=== PATIENT | female | born 1955 | race Caucasian/White ===

== ENCOUNTER 2022-07-29 20:22 | Emergency (ER) | payer OTHER, MEDICARE, SELFPAY ==
[2022-07-29 20:29] VITALS: BP 166/72; PULSE 91; RESP 18; TEMP 36.5; O2SAT 97; BMI 27.5
--- NOTE | 2022-07-29 20:42 | CRLHL7_ITS ---
For Patients: As a result of the Cures Act, medical imaging exams and procedure reports are released immediately into your electronic medical record. You may view this report before your referring provider. If you have questions, please contact your health care provider. INDICATION: Cough. TECHNIQUE: Chest 2 views. COMPARISON: None. FINDINGS: Cardiovascular and mediastinum: Cardiomediastinal silhouette is within normal limits Lungs and pleural spaces: Lungs are clear. No sign of pleural effusion. No pneumothorax. Bones and soft tissues: No significant findings. IMPRESSION: No acute or significant findings. Dictated by Toby Lee MD @ 07/29/2022 9:14:05 PM (Electronically Signed)
--- NOTE | 2022-07-29 20:44 | ED_ITS ---
HPI - SOB/Dyspnea General Date Seen: 07/29/22 Chief Complaint: Cough Stated Complaint: Cough, Vomiting, Pain across the back Time Seen by Provider: 07/29/22 20:24 Source: patient and family Mode of arrival: ambulatory Limitations: no limitations History of Present Illness HPI Narrative: This very nice 59-year-old female presents here with her significant other for evaluation of cough of wishes for 3 weeks it has gotten a little worse in the last week or so she will have coughing jags will show feel like and has retched a couple times with these. She has never coughed up any blood any green sputum, she has it worse in the morning when she wakes up, whenever she is talking. She does not really have any shortness of breath with this leg swelling, there has been no other significant nausea vomiting she is eating and drinking normally and no fevers or chills associated with this. She has tried some [id number] remedies but really nothing major. She has tested negative for COVID a couple times over the past 3 days. Treatment prior to arrival: none Related Data Home oxygen amount: none Home Medications Medication Instructions Recorded Confirmed alendronate 70 mg tablet 70 mg PO QWEEK 03/01/22 07/29/22 citalopram 40 mg tablet 40 mg PO QDAY 03/01/22 07/29/22 gabapentin 300 mg capsule 300 mg PO TID 03/01/22 07/29/22 lisinopril 10 1 tab PO QDAY 03/01/22 07/29/22 mg-hydrochlorothiazide 12.5 mg tablet omeprazole 40 mg capsule,delayed 40 mg PO QDAY 03/01/22 07/29/22 release simvastatin 40 mg tablet 40 mg PO QDAY 03/01/22 07/29/22 Previous Rx's Medication Instructions Recorded ergocalciferol (vitamin D2) 1,250 50,000 unit PO QWEEK #12 caps 04/18/22 mcg (50,000 unit) capsule levothyroxine 75 mcg capsule 75 mcg PO QDAY #90 caps 04/18/22 Allergies Allergy/AdvReac Type Severity Reaction Status Date / Time Sulfa (Sulfonamide Allergy Mild Rash Verified 03/01/22 10:01 Antibiotics) Review of Systems Status of ROS: Reports: 10 or more systems reviewed and unremarkable except as noted in History and below PFSH PFSH Medical History (Updated 07/29/22 @ 21:43 by Olaf Jane RN) Anxiety Chronic low back pain COVID-19 virus infection Depression GI bleed Hypercholesteremia Hypothyroidism Malignant neoplasm of overlapping sites of rectum, anus and anal canal MRSA (methicillin resistant Staphylococcus aureus) Primary hypertension Vitamin D deficiency Surgical History (Updated 07/29/22 @ 21:43 by Olaf Jane RN) History of section History of colonoscopy History of tonsillectomy Social History Smoking Status: Never smoker Do you use any of these nicotine containing products: None Second hand tobacco smoke exposure: No How often do you have a drink containing alcohol: never How often do you have six or more drinks on one occasion: Never AUDIT-C Alcohol total score: 0 Non-prescribed substance use: denies use Exam Narrative: Exam Narrative: Patient is peaking normally, problem with slurring words, oriented x3. Head eyes ears nose and throat exam show equal pupils, no scleral icterus, extraocular muscles are normal, no facial droop, speech is normal, trachea normal and midline. Thyroid normal midline palpable not enlarged. Chest shows symmetrical rise bilaterally, normal auscultation with no wheezes, no increased work of breathing, no overt bruising or lesions seen, no tenderness is noted on auscultation. Heart sounds normal with no S3-S4 no murmurs clicks or gallops. Abdomen shows no obvious masses or hepatosplenomegaly, no organomegaly, bowel sounds are normal in all quadrants. No tenderness is noted also in all quadrants. Upper and lower extremities show normal power, normal range of motion, pulses are normal, sensations normal, fine motor movements are normal, pelvis is stable to rocking. Cervical spine shows normal range of motion, and palpably not tender. Thoracic spine shows normal range of motion, and palpably not tender, lumbar spine shows no tenderness to palpation percussion and is otherwise normal range of motion. Skin shows no rashes, petechiae or eccymosis. Const: Vital Signs, click to edit/add: Vital Signs - 24 hr 07/29/22 20:29 07/29/22 21:43 07/29/22 20:45 Temperature 97.7 F 97.7 F Pulse Rate [Right Pulse Oximeter] 91 84 Respiratory Rate 18 18 Blood Pressure [Ri ght Upper Arm] 166/72 H 154/70 H Pulse Oximetry 97 97 97 Oxygen Delivery Me thod Room Air Room Air Documenting provider has reviewed patient's vital signs: yes Course Course Hospital Course: I discussed with the patient and her , we will do a chest x-ray will do a triple swab but I suspect that she has some postnasal drip causing her to cough, as I have a similar current presentation. Flu swab came back positive influenza a, given the length of time she sick, she is not a candidate for Tamiflu, we talked about symptomatic management, however cough, which can be improved by using inhaler even though she is not wheezy, she would like to try this. Other symptomatic treatment is discussed. Vital Signs Vital signs: Initial Vital Signs Temperature 97.7 F 07/29/22 20:29 Temperature Source Temporal Artery Scan 07/29/22 20:29 Pulse Rate 91 07/29/22 20:29 Respiratory Rate 18 07/29/22 20:29 Blood Pressure 166/72 H 07/29/22 20:29 Blood Pressure Mean 103 07/29/22 20:29 Blood Pressure Position Sitting 07/29/22 20:29 Pulse Oximetry 97 07/29/22 20:29 Oxygen Delivery Method 07/29/22 20:29 Vital Signs Temperature 97.7 F 07/29/22 20:29 Pulse Rate 91 07/29/22 20:29 Respiratory Rate 18 07/29/22 20:29 Blood Pressure 166/72 H 07/29/22 20:29 Pulse Oximetry 97 07/29/22 20:29 Oxygen Delivery Method 07/29/22 20:29 Temperature 97.7 F 07/29/22 21:43 Pulse Rate 84 07/29/22 21:43 Respiratory Rate 18 07/29/22 21:43 Blood Pressure 154/70 H 07/29/22 21:43 Pulse Oximetry 97 07/29/22 21:43 Oxygen Delivery Method 07/29/22 21:43 MDM - SOB/Dyspnea MDM Narrative Medical decision making narrative: Differential diagnosis include a viral upper respiratory illness, histoplasmosis, tuberculosis, pneumonia, COPD exacerbation, emphysema, strep throat illness, bronchitis, asthma, reactive airway disease, chronic cough, medication side effects, allergic rhinitis with postnasal drip, foreign body aspiration, aspiration pneumonia, bronchiolitis, and gastroesophageal reflux disease as well as multiple other considerations. Medical Records Attestation: I reviewed the patient's medical records. Lab Data Attestation: I reviewed the patient's lab results. Labs: Lab Results 07/29/22 Range/Units 20:36 SARS-CoV-2 (PCR) Negative SARS-CoV-2 (Negative) Influenza Type A (PCR) POSITIVE PCR FLU A A (Negative) Influenza Type B (PCR) Negative PCR FLU B (Negative) RSV (PCR) Negative PCR RSV (Negative) Imaging Data Chest x-ray: Attestation: I have reviewed the pertinent imaging results. My impression: Negative chest Radiologist's impression: Patient: HIMANSHU BLUM Facility:?[facility] Patient ID:?[id number] Site Patient ID:?[id number]. Site :?[id number] Study:?XRay Chest 2 views-07/29/2022 9:03:53 PM Ordering Physician:Jace Galloway Final Report: INDICATION: Cough. TECHNIQUE: Chest 2 views. COMPARISON: None. FINDINGS: Cardiovascular and mediastinum: Cardiomediastinal silhouette is within normal limits Lungs and pleural spaces: Lungs are clear. No sign of pleural effusion. No pneumothorax. Bones and soft tissues: No significant findings. IMPRESSION: No acute or significant findings. Dictated by Toby Lee MD @ 07/29/2022 9:14:05 PM (Electronic Signature) Discharge Plan Discharge Clinical Impression: Influenza A Patient Disposition: Home w/ Parent or Adult Condition: Stable Instructions: Influenza (ED) Additional Instructions: Home rest you can try the NyQuil at night I did not find this work that well, I would stay away from pure decongestants given your history of blood pressure, Tylenol, and ibuprofen would be helpful at night also. Let us try the inhaler, see if that helps, 2 puffs from the inhaler every 4-6 hours, the only real side effect of this is makes you feel little jittery like having caffeine. Prescriptions: No Action citalopram 40 mg tablet 40 mg PO QDAY lisinopril-hydrochlorothiazide 10-12.5 mg tablet 1 tab PO QDAY simvastatin 40 mg tablet 40 mg PO QDAY alendronate 70 mg tablet 70 mg PO QWEEK gabapentin 300 mg capsule 300 mg PO TID omeprazole 40 mg capsule,delayed release(DR/EC) 40 mg PO QDAY ergocalciferol (vitamin D2) 1,250 mcg (50,000 unit) capsule 50,000 unit PO QWEEK Qty: 12 1RF levothyroxine 75 mcg capsule 75 mcg PO QDAY Qty: 90 1RF Stand Alone Forms: [facility] Info Instructions
[2022-07-29 20:45] VITALS: O2SAT 97
[2022-07-29 21:28] LABS: PCR FLU A POSITIVE PCR FLU A (Negative); PCR FLU B Negative PCR FLU B (Negative); PCR RSV Negative PCR RSV (Negative)
[2022-07-29 21:33] LABS: SARS PCR* Negative SARS-CoV-2 (Negative)
[2022-07-29 21:43] VITALS: BP 154/70; PULSE 84; RESP 18; TEMP 36.5; O2SAT 97
[2022-07-29 21:56] VITALS: BP 154/70; PULSE 84; RESP 18; TEMP 36.5
== END 2022-07-29 21:56 | disposition home or self-care (01) ==
PROVIDERS: Emergency Provider Family Medicine; PCP Family Medicine
DX: J09.X2 Influenza due to identified novel influenza A virus with other respiratory manifestations (principal)
CPT/HCPCS: 71046; 87502; 87634; 87635; 94761; 99284

== ENCOUNTER 2022-09-28 13:40 | Outpatient (CLI) | payer OTHER, MEDICARE, SELFPAY | END 2022-09-28 13:41 | disposition home or self-care (01) | LOC: NFLDREF 13:40 | PROVIDERS: PCP Family Medicine; Visit Provider Family Medicine | DX: E03.9 Hypothyroidism, unspecified (principal) | CPT/HCPCS: 84443 ==

== ENCOUNTER 2023-02-20 16:51 | Emergency (ER) | payer OTHER, MEDICARE, SELFPAY ==
[2023-02-20 17:02] VITALS: BP 147/87; PULSE 90; RESP 18; TEMP 36.2; O2SAT 95; BMI 27.5
[2023-02-20 17:25] LABS: Appearance Urine Clear (Clear); Bilirubin Urine Negative (Negative); Blood Urine 1+ (Negative); Color Urine Yellow (Yellow); Glucose Urine Negative (Negative); Ketones Urine Negative (Negative); Leukocyte Esterase Urine Trace (Negative); Nitrite Urine Negative (Negative); Protein Urine Trace (Negative); Urobilinogen Urine 0.2 (0.2-1.0); pH Urine 5.5 (5.0-8.5)
[2023-02-20 17:34] LABS: Bacteria Urine Few; Mucus Urine Few; Squamous Epithelial Cell Urine Moderate (None-Few)
--- NOTE | 2023-02-20 17:35 | ED.GENADULT ---
HPI - General Adult General Chief complaint: Unspecified Complaint, Adult Stated complaint: UTI Time Seen by Provider: 02/20/23 16:55 Source: patient Mode of arrival: ambulatory Limitations: no limitations History of Present Illness HPI narrative: 67-year-old female coming in today concerned will urinary incontinence going on for several months. She is concerned she may have a UTI. She states when she has an urge to urinate she can hold it. She also states that when she does things like stand up or cough for instance, she will dribble then as well. She denies increased urinary frequency. She does state that her urine has a foul smell to it that is going on for several months as well. She denies fevers or chills. No flank pain. No changes in her weight. No nausea or vomiting. She does have a history of colorectal cancer which she had chemo and radiation for. Related Data Home Medications Medication Instructions Recorded Confirmed lisinopril 10 1 tab PO QDAY 03/01/22 07/29/22 mg-hydrochlorothiazide 12.5 mg tablet omeprazole 40 mg capsule,delayed 40 mg PO QDAY 03/01/22 07/29/22 release Previous Rx's Medication Instructions Recorded ergocalciferol (vitamin D2) 1,250 50,000 unit PO QWEEK #12 caps 04/18/22 mcg (50,000 unit) capsule alendronate 70 mg tablet 70 mg PO QWEEK #12 tabs 01/30/23 citalopram 40 mg tablet 40 mg PO QDAY #30 tabs 02/03/23 levothyroxine 88 mcg capsule 88 mcg PO QDAY #30 caps 02/03/23 gabapentin 300 mg capsule 300 mg PO TID #270 caps 02/07/23 simvastatin 40 mg tablet 40 mg PO QDAY #90 tabs 02/07/23 Allergies Allergy/AdvReac Type Severity Reaction Status Date / Time Sulfa (Sulfonamide Allergy Mild Rash Verified 02/20/23 17:06 Antibiotics) Review of Systems Status of ROS: Reports: 10 or more systems reviewed and unremarkable except as noted in History and below [facility] Medical History Encounter for screening ?Z13.9 - Encounter for screening, unspecified (ICD-10) Hyperlipidemia ?E78.5 - Hyperlipidemia, unspecified (ICD-10) Major depression, recurrent ?F33.9 - Major depressive disorder, recurrent, unspecified (ICD-10) GAYLA (generalized anxiety disorder) ?F41.1 - Generalized anxiety disorder (ICD-10) Primary hypertension ?I10 - Essential (primary) hypertension (ICD-10) Chronic low back pain ?M54.50 - Low back pain, unspecified (ICD-10) ?G89.29 - Other chronic pain (ICD-10) Vitamin D deficiency ?E55.9 - Vitamin D deficiency, unspecified (ICD-10) GI bleed ?K92.2 - Gastrointestinal hemorrhage, unspecified (ICD-10) MRSA (methicillin resistant Staphylococcus aureus) ?A49.02 - Methicillin resistant Staphylococcus aureus infection, unspecified site (ICD-10) Malignant neoplasm of overlapping sites of rectum, anus and anal canal ?C21.8 - Malignant neoplasm of overlapping sites of rectum, anus and anal canal (ICD-10) Hypothyroidism ?E03.9 - Hypothyroidism, unspecified (ICD-10) COVID-19 virus infection ?U07.1 - COVID-19 (ICD-10) Surgical History History of colonoscopy ?Z98.890 - Other specified postprocedural states (ICD-10) History of tonsillectomy ?Z90.89 - Acquired absence of other organs (ICD-10) History of section ?Z98.891 - History of uterine scar from previous surgery (ICD-10) Family History Grandfather Diabetes Hypercholesteremia High blood pressure Grandmother Diabetes Hypercholesteremia High blood pressure Osteoporosis Father Hx of emphysema Mother Hypercholesteremia Lung cancer Maternal Grandmother Uterine cancer Social History Narrative: - Miguel A Non-smoker Wears glasses Smoking Status: Never smoker Do you use any of these nicotine containing products: None Second hand tobacco smoke exposure: No How often do you have a drink containing alcohol: never How often do you have six or more drinks on one occasion: Never AUDIT-C Alcohol total score: 0 Non-prescribed substance use: denies use Exam Narrative: Exam Narrative: Well-nourished well-developed patient in no acute distress. Alert and oriented. Answers questions appropriately. Mood and affect are appropriate. Thoughts are goal oriented and rational. No tangential or magical thinking noted. Patient speaks in full sentences without needing to catch her breath. HEENT: Normocephalic atraumatic. Pupils are equally round reactive to light. Extraocular muscles are intact. Conjunctivae are moist without any icterus noted. Moist mucous membranes. Extremities: Bilateral lower extremities are without edema. Skin: Well perfused without any obvious rashes. Const: Vital Signs, click to edit/add: Vital Signs - 24 hr 02/20/23 17:02 Temperature 97.1 F L Pulse Rate [Pulse Oximeter] 90 Respiratory Rate 18 Blood Pressure [Ri t Upper Arm] 147/87 H Pulse Oximetry 95 Oxygen Delivery Me thod Room Air Course Course Hospital Course: UA was done which was not overwhelming for signs of infection. Vital Signs Vital signs: Initial Vital Signs Temperature 97.1 F L 02/20/23 17:02 Temperature Source Temporal Artery Scan 02/20/23 17:02 Pulse Rate 90 02/20/23 17:02 Pulse Rhythm Regular 02/20/23 17:02 Pulse Strength 0+ Absent 02/20/23 17:02 Respiratory Rate 18 02/20/23 17:02 Blood Pressure 147/87 H 02/20/23 17:02 Blood Pressure Mean 107 H 02/20/23 17:02 Blood Pressure Position Sitting 02/20/23 17:02 Pulse Oximetry 95 02/20/23 17:02 Oxygen Delivery Method Room Air 02/20/23 17:02 Vital Signs Temperature 97.1 F L 02/20/23 17:02 Pulse Rate 90 02/20/23 17:02 Respiratory Rate 18 02/20/23 17:02 Blood Pressure 147/87 H 02/20/23 17:02 Pulse Oximetry 95 02/20/23 17:02 Oxygen Delivery Method Room Air 02/20/23 17:02 Temperature 97.1 F L 02/20/23 17:02 Pulse Rate 90 02/20/23 17:02 Respiratory Rate 18 02/20/23 17:02 Blood Pressure 147/87 H 02/20/23 17:02 Pulse Oximetry 95 02/20/23 17:02 Oxygen Delivery Method Room Air 02/20/23 17:02 Medical Decision Making MDM Narrative Medical decision making narrative: 59-year-old female with urinary incontinence. Recommend she follow up with primary care provider for for next steps in management. Urine culture pending at this time we will treat antibiotics should that come back positive. Patient was in agreement and had no other questions. Lab Data Lab results reviewed: Yes I reviewed the patient's lab results Labs: Lab Results 02/20/23 Range/Units 17:20 Urine Color Yellow (Yellow) Urine Appearance Clear (Clear) Urine pH 5.5 (5.0-8.5) Ur Specific [place] 1.020 (1.000-1.030) Urine Protein Trace A (Negative) Urine Glucose (UA) Negative (Negative) Urine Ketones Negative (Negative) Urine Blood 1+ A (Negative) Urine Nitrite Negative (Negative) Urine Bilirubin Negative (Negative) Urine Urobilinogen 0.2 (0.2-1.0) Ur Leukocyte Esterase Trace A (Negative) Urine RBC 2-5 A (0-2) Urine WBC 2-5 (0-5) Ur Squamous Epith Cells Moderate A (None-Few) Urine Bacteria Few A (None) Urine Mucus Few A (None) Discharge Plan Discharge Clinical Impression: Urinary incontinence Patient Disposition: Home, Self-Care Condition: Stable Additional Instructions: Follow-up with your primary care provider for next steps in management. This can include appointment with OBGYN or physical therapist. Prescriptions: No Action lisinopril-hydrochlorothiazide 10-12.5 mg tablet 1 tab PO QDAY omeprazole 40 mg capsule,delayed release(DR/EC) 40 mg PO QDAY ergocalciferol (vitamin D2) 1,250 mcg (50,000 unit) capsule 50,000 unit PO QWEEK Qty: 12 1RF alendronate 70 mg tablet 70 mg PO QWEEK Qty: 12 0RF citalopram 40 mg tablet 40 mg PO QDAY Qty: 30 0RF levothyroxine 88 mcg capsule 88 mcg PO QDAY Qty: 30 0RF simvastatin 40 mg tablet 40 mg PO QDAY Qty: 90 0RF gabapentin 300 mg capsule 300 mg PO TID Qty: 270 0RF Rx Instructions: Patient needs an appointment before next refill. Follow Up/Referrals: Alpesh Lee MD [Primary Care Provider] - Stand Alone Forms: [facility] Info Instructions
== END 2023-02-20 18:39 | disposition home or self-care (01) ==
PROVIDERS: Emergency Provider Family Medicine; PCP Family Medicine
DX: R32 Unspecified urinary incontinence (principal)
CPT/HCPCS: 81001; 87086; 99283

== ENCOUNTER 2023-02-24 13:03 | Outpatient (CLI) | payer OTHER, MEDICARE, SELFPAY | END 2023-02-24 13:04 | disposition home or self-care (01) | PROVIDERS: PCP Family Medicine; Visit Provider Family Medicine | DX: E78.00 Pure hypercholesterolemia, unspecified (principal); E55.9 Vitamin D deficiency, unspecified; E78.5 Hyperlipidemia, unspecified; E03.9 Hypothyroidism, unspecified; I10 Essential (primary) hypertension | CPT/HCPCS: 80048; 80061; 82306; 84439; 84443 ==

== ENCOUNTER 2023-09-19 13:34 | Outpatient (CLI) | payer OTHER, MEDICARE, SELFPAY ==
--- NOTE | 2023-09-19 13:40 | CRLHL7_ITS ---
For Patients: As a result of the Century Cures Act, medical imaging exams and procedure reports are released immediately into your electronic medical record. You may view this report before your referring provider. If you have questions, please contact your health care provider. BILATERAL SCREENING MAMMOGRAM WITH COMPUTER-AIDED DETECTION AND TOMOSYNTHESIS TECHNIQUE: CC and MLO views were obtained. These mammographic images have been obtained using full-field digital technique. These mammographic images were interpreted with the benefit of computer-aided detection. Breast Tomosynthesis was used in this interpretation. COMPARISON FILM: 12/14/21, 04/01/20, 01/16/19. FINDINGS: The breasts are heterogeneously dense, which may obscure small masses. IMPRESSION: There is no radiographic evidence for malignancy. ASSESSMENT: BI-RADS Category 1: Negative RECOMMENDATION: Routine screening mammogram in 1 year. A lay language report of this examination will be provided to the patient. Alpesh Freitas M.D. Diagnostic Radiologist [email or web address] SP/Dictated by: Alpesh Freitas MD @ 09/20/2023 1:16:00 PM (Electronically Signed)
== END 2023-09-19 13:35 | disposition home or self-care (01) ==
LOC: MAMMO 13:35
PROVIDERS: PCP Family Medicine; Visit Provider Family Medicine
DX: Z12.31 Encounter for screening mammogram for malignant neoplasm of breast (principal); R92.2 Inconclusive mammogram
CPT/HCPCS: 77063; 77067

== ENCOUNTER 2023-10-18 13:35 | Outpatient (CLI) | payer OTHER, MEDICARE, SELFPAY | END 2023-10-18 13:36 | disposition home or self-care (01) | LOC: NFLDREF 11-03 09:44 | PROVIDERS: PCP Family Medicine; Referring Provider Family Medicine; Visit Provider Family Medicine | DX: E03.9 Hypothyroidism, unspecified (principal) | CPT/HCPCS: 84443 ==

== ENCOUNTER 2023-12-31 17:45 | Emergency (ER) | payer OTHER, SELFPAY ==
[2023-12-31 17:57] VITALS: BP 154/74; PULSE 96; RESP 18; TEMP 37.3; O2SAT 94; BMI 27.5
[2023-12-31 18:08] LABS: Appearance Urine Clear (Clear); Bilirubin Urine Negative (Negative); Blood Urine 3+ (Negative); Color Urine Yellow (Yellow); Glucose Urine Negative (Negative); Ketones Urine Negative (Negative); Leukocyte Esterase Urine 2+ (Negative); Nitrite Urine Negative (Negative); Protein Urine Negative (Negative); Urobilinogen Urine 0.2 (0.2-1.0); pH Urine 6.5 (5.0-8.5)
[2023-12-31 18:35] LABS: Bacteria Urine Few; Squamous Epithelial Cell Urine Few (None-Few); WBC Urine 50-100 (0-5)
--- NOTE | 2023-12-31 18:38 | ED_ITS ---
HPI - General Adult General Chief complaint: Urogenital Problems, Female Stated complaint: Bladder issues Time Seen by Provider: 12/31/23 17:47 Source: patient Mode of arrival: ambulatory Limitations: no limitations History of Present Illness HPI narrative: 68-year-old female coming in today complaining about dysuria, increased urinary urgency and frequency that started when she woke up this morning. She describes suprapubic discomfort. She denies any flank pain, fevers, chills, nausea or vomiting. Thought that she saw couple drops of blood in her urine last time she urinated. Related Data Home Medications Medication Instructions Recorded Confirmed omeprazole 40 mg capsule,delayed 40 mg PO QDAY 03/01/22 12/31/23 release dicyclomine 20 mg tablet 20 mg PO DAILY 02/23/23 12/31/23 Previous Rx's Medication Instructions Recorded alendronate 70 mg tablet 70 mg PO QWEEK #12 tabs 01/30/23 lisinopril 10 1 tab PO QDAY #90 tabs 04/11/23 mg-hydrochlorothiazide 12.5 mg tablet simvastatin 40 mg tablet 40 mg PO QDAY #90 tabs 04/21/23 ergocalciferol (vitamin D2) 1,250 50,000 unit PO QWEEK #12 caps 07/31/23 mcg (50,000 unit) capsule citalopram 40 mg tablet 40 mg PO QDAY #90 tabs 09/04/23 levothyroxine 100 mcg capsule 100 mcg PO QDAY #90 caps 10/19/23 gabapentin 300 mg capsule 300 mg PO 3XD #270 caps 11/28/23 Allergies Allergy/AdvReac Type Severity Reaction Status Date / Time Sulfa (Sulfonamide Allergy Mild Rash Verified 12/31/23 17:59 Antibiotics) Review of Systems Status of ROS: Reports: 10 or more systems reviewed and unremarkable except as noted in History and below [facility] Medical History Restless leg syndrome ?G25.81 - Restless legs syndrome (ICD-10) Hyperlipidemia ?E78.5 - Hyperlipidemia, unspecified (ICD-10) Major depression, recurrent ?F33.9 - Major depressive disorder, recurrent, unspecified (ICD-10) GAYLA (generalized anxiety disorder) ?F41.1 - Generalized anxiety disorder (ICD-10) Primary hypertension ?I10 - Essential (primary) hypertension (ICD-10) Chronic low back pain ?M54.50 - Low back pain, unspecified (ICD-10) ?G89.29 - Other chronic pain (ICD-10) Vitamin D deficiency ?E55.9 - Vitamin D deficiency, unspecified (ICD-10) GI bleed ?K92.2 - Gastrointestinal hemorrhage, unspecified (ICD-10) MRSA (methicillin resistant Staphylococcus aureus) ?A49.02 - Methicillin resistant Staphylococcus aureus infection, unspecified site (ICD-10) Malignant neoplasm of overlapping sites of rectum, anus and anal canal ?C21.8 - Malignant neoplasm of overlapping sites of rectum, anus and anal canal (ICD-10) Hypothyroidism ?E03.9 - Hypothyroidism, unspecified (ICD-10) COVID-19 virus infection ?U07.1 - COVID-19 (ICD-10) Surgical History History of colonoscopy ?Z98.890 - Other specified postprocedural states (ICD-10) History of tonsillectomy ?Z90.89 - Acquired absence of other organs (ICD-10) History of section ?Z98.891 - History of uterine scar from previous surgery (ICD-10) Family History Grandfather Diabetes Hypercholesteremia High blood pressure Grandmother Diabetes Hypercholesteremia High blood pressure Osteoporosis Father Hx of emphysema Mother Hypercholesteremia Lung cancer Maternal Grandmother Uterine cancer Social History Narrative: - Miguel A Non-smoker Wears glasses What is your current living situation?: I presently have a place to live Problems where you live: no known problems In the past 12 months, utilities in danger of being shut off: no In past 12 months, lack of transportation kept you from medical appts, meetings, work, or getting things needed for daily living: no In the past 12 mos, have been you worried that your food would run out before you had money to buy more?: never true In the past 12 mos, the food you bought just didn't last and you didn't have money to buy more?: never true Smoking Status: Never smoker Do you use any of these nicotine containing products: None Second hand tobacco smoke exposure: No How often do you have a drink containing alcohol: never How often do you have six or more drinks on one occasion: Never AUDIT-C Alcohol total score: 0 Non-prescribed substance use: denies use How often does anyone, including family, friends and others, physically hurt you : never How often does anyone, including family, friends and others, insult or talk down to you: never How often does anyone, including family, friends and others, threaten you with harm: never How often does anyone, including family, friends and others, scream or curse at you: never Little interest or pleasure in doing things: several days Feeling down, depressed, or hopeless: not at all Exam Narrative: Exam Narrative: Well-nourished well-developed patient in no acute distress. Alert and oriented. Answers questions appropriately. Mood and affect are appropriate. Thoughts are goal oriented and rational. No tangential or magical thinking noted. Patient speaks in full sentences without needing to catch her breath. HEENT: Normocephalic atraumatic. Pupils are equally round reactive to light. Extraocular muscles are intact. Conjunctivae are moist without any icterus noted. Moist mucous membranes. Abdomen: Soft and nontender with normal bowel sounds. No guarding or rebound. No suprapubic discomfort. No CVA tenderness. Const: Vital Signs, click to edit/add: Vital Signs - 24 hr 12/31/23 17:57 Temperature 99.1 F Pulse Rate [Pulse Oximeter] 96 Respiratory Rate 18 Blood Pressure [Ri ght Upper Arm] 154/74 H Pulse Oximetry 94 Oxygen Delivery Me thod Room Air Course Course ED Course: UA is grossly positive for signs of infection. Vital Signs Vital signs: Initial Vital Signs Temperature 99.1 F 12/31/23 17:57 Temperature Source Temporal Artery Scan 12/31/23 17:57 Pulse Rate 96 12/31/23 17:57 Respiratory Rate 18 12/31/23 17:57 Blood Pressure 154/74 H 12/31/23 17:57 Blood Pressure Mean 100 12/31/23 17:57 Blood Pressure Position Sitting 12/31/23 17:57 Pulse Oximetry 94 12/31/23 17:57 Oxygen Delivery Method Room Air 12/31/23 17:57 Vital Signs Temperature 99.1 F 12/31/23 17:57 Pulse Rate 96 12/31/23 17:57 Respiratory Rate 18 12/31/23 17:57 Blood Pressure 154/74 H 12/31/23 17:57 Pulse Oximetry 94 12/31/23 17:57 Oxygen Delivery Method Room Air 12/31/23 17:57 Temperature 99.1 F 12/31/23 17:57 Pulse Rate 96 12/31/23 17:57 Respiratory Rate 18 12/31/23 17:57 Blood Pressure 154/74 H 12/31/23 17:57 Pulse Oximetry 94 12/31/23 17:57 Oxygen Delivery Method Room Air 12/31/23 17:57 Medical Decision Making MDM Narrative Medical decision making narrative: 68-year-old female with a UTI. Will treat with Keflex t.i.d. for 5 days. Follow-up as needed. Lab Data Lab results reviewed: Yes I reviewed the patient's lab results Labs: Lab Results 12/31/23 Range/Units 18:00 Urine Color Yellow (Yellow) Urine Appearance Clear (Clear) Urine pH 6.5 (5.0-8.5) Ur Specific [place] 1.010 (1.000-1.030) Urine Protein Negative (Negative) Urine Glucose (UA) Negative (Negative) Urine Ketones Negative (Negative) Urine Blood 3+ A (Negative) Urine Nitrite Negative (Negative) Urine Bilirubin Negative (Negative) Urine Urobilinogen 0.2 (0.2-1.0) Ur Leukocyte Esterase 2+ A (Negative) Urine RBC 5-10 A (0-2) Urine WBC 50-100 A (0-5) Ur Squamous Epith Cells Few (None-Few) Urine Bacteria Few A (None) Discharge Plan Discharge Clinical Impression: Urinary tract infection Patient Disposition: Home, Self-Care Condition: Stable Additional Instructions: Your urine does show signs of a bladder infection. Take all antibiotics as prescribed. Okay to take Tylenol or ibuprofen for discomfort. Follow-up with your primary care provider next week if you feel like you are not improving. Return to the ER if you develop vomiting or fevers. Take the antibiotic 3 times per day for 5 days. Keflex 500 mg tablets sent to [facility]. Prescriptions: No Action dicyclomine 20 mg tablet 20 mg PO DAILY omeprazole 40 mg capsule,delayed release(DR/EC) 40 mg PO QDAY alendronate 70 mg tablet 70 mg PO QWEEK Qty: 12 0RF lisinopril-hydrochlorothiazide 10-12.5 mg tablet 1 tab PO QDAY Qty: 90 3RF simvastatin 40 mg tablet 40 mg PO QDAY Qty: 90 3RF ergocalciferol (vitamin D2) 1,250 mcg (50,000 unit) capsule 50,000 unit PO QWEEK Qty: 12 1RF citalopram 40 mg tablet 40 mg PO QDAY Qty: 90 1RF levothyroxine 100 mcg capsule 100 mcg PO QDAY Qty: 90 3RF gabapentin 300 mg capsule 300 mg PO 3XD Qty: 270 0RF Follow Up/Referrals: Alpesh Lee MD [Primary Care Provider] - Stand Alone Forms: [facility] Info Instructions
[2023-12-31 18:59] VITALS: BP 154/74; PULSE 96; RESP 18; TEMP 37.3
== END 2023-12-31 18:55 | disposition home or self-care (01) ==
PROVIDERS: Emergency Provider Family Medicine; PCP Family Medicine
DX: N39.0 Urinary tract infection, site not specified (principal)
CPT/HCPCS: 81001; 87086; 87186; 99283

== ENCOUNTER 2024-02-29 11:37 | Outpatient (CLI) | payer OTHER, SELFPAY | END 2024-02-29 11:38 | disposition home or self-care (01) | PROVIDERS: PCP Family Medicine; Visit Provider Family Medicine | DX: E55.9 Vitamin D deficiency, unspecified (principal); E78.2 Mixed hyperlipidemia; I10 Essential (primary) hypertension; E03.9 Hypothyroidism, unspecified; N39.46 Mixed incontinence; M81.0 Age-related osteoporosis without current pathological fracture | CPT/HCPCS: 80048; 80061; 84439; 84443; 84460; 85025; 87086 ==

== ENCOUNTER 2024-03-20 13:01 | Outpatient (RCR) | payer OTHER, MEDICARE, SELFPAY ==
--- NOTE | 2024-03-04 12:38 | ONC.NURNOTE ---
Diagnosis: Osteoporosis M81.0
--- NOTE | 2024-03-05 10:06 | URNOTE ---
Per [employer], Prior authorization is not required for Reclast ([id number]).
[2024-03-20 13:09] VITALS: TEMP 36.1; O2SAT 95
[2024-03-20 13:30] VITALS: BP 142/77; PULSE 96; RESP 16; TEMP 36.1; O2SAT 95
== END 2024-09-16 23:59 | disposition home or self-care (01) ==
LOC: CCIC 13:01
PROVIDERS: PCP Family Medicine; Referring Provider Family Medicine; Visit Provider Clinical Nurse Specialist
DX: M81.0 Age-related osteoporosis without current pathological fracture (principal)
CPT/HCPCS: 96374; J3489

== ENCOUNTER 2024-06-03 14:00 | Outpatient (RCR) | payer OTHER, SELFPAY | END 2024-10-01 23:59 | disposition home or self-care (01) | PROVIDERS: PCP Family Medicine; Visit Provider Nurse Practitioner Family | DX: N39.46 Mixed incontinence (principal); R27.8 Other lack of coordination; M62.81 Muscle weakness (generalized); M63.89 Disorders of muscle in diseases classified elsewhere, multiple sites; Z51.89 Encounter for other specified aftercare | CPT/HCPCS: 97110; 97140; 97162; 97535 ==

== ENCOUNTER 2024-11-25 10:39 | Outpatient (CLI) | payer OTHER, MEDICARE, SELFPAY | END 2024-11-25 10:40 | disposition home or self-care (01) | PROVIDERS: PCP Family Medicine; Visit Provider Family Medicine | DX: E03.9 Hypothyroidism, unspecified (principal); I10 Essential (primary) hypertension; R73.01 Impaired fasting glucose; R53.83 Other fatigue; E55.9 Vitamin D deficiency, unspecified | CPT/HCPCS: 80048; 82306; 84443 ==

== ENCOUNTER 2025-02-19 14:27 | Outpatient (CLI) | payer OTHER, MEDICARE, SELFPAY ==
--- NOTE | 2025-02-19 14:40 | CRLHL7_ITS ---
For Patients: As a result of the Century Cures Act, medical imaging exams and procedure reports are released immediately into your electronic medical record. You may view this report before your referring provider. If you have questions, please contact your health care provider. INDICATION: BILATERAL SCREENING MAMMOGRAM, ASYMPTOMATIC 69 Y/O FEMALE COMPARISON: 09/19/2023, 12/14/2021, 04/01/2020 TECHNIQUE: Digital mammogram in CC and MLO projections including computer-aided detection (CAD) and tomosynthesis. BREAST COMPOSITION: The breasts are heterogeneously dense, which may obscure small masses. FINDINGS: No suspicious findings. ASSESSMENT: BI-RADS 1 Negative RECOMMENDATION: Annual screening mammogram. A lay language report of this examination will be provided to the patient. Dictated by: Alpesh Freitas MD @ 02/20/2025 10:10:25 (Electronically Signed)
== END 2025-02-19 14:28 | disposition home or self-care (01) ==
LOC: MAMMO 14:28
PROVIDERS: PCP Family Medicine; Visit Provider Family Medicine
DX: Z12.31 Encounter for screening mammogram for malignant neoplasm of breast (principal); R92.333 Mammographic heterogeneous density, bilateral breasts
CPT/HCPCS: 77063; 77067

== ENCOUNTER 2025-06-16 12:55 | Outpatient (CLI) | payer OTHER, SELFPAY | END 2025-06-16 12:56 | disposition home or self-care (01) | PROVIDERS: PCP Family Medicine; Visit Provider Family Medicine | DX: E11.9 Type 2 diabetes mellitus without complications (principal); E78.2 Mixed hyperlipidemia; E03.9 Hypothyroidism, unspecified; E55.9 Vitamin D deficiency, unspecified | CPT/HCPCS: 80061; 82043; 82306; 82570; 84443 ==